=== PATIENT | female | born 1990 | race Caucasian/White ===

== ENCOUNTER 2016-11-30 09:24 | Emergency (ER) | payer BC ==
[~2016-11-30] VITALS: Ht 160 cm; Wt 63.5 kg
[2016-11-30 09:30] VITALS: BP_SYST 126
--- NOTE | 2016-11-30 09:30 | NUR ---
Patient triaged and placed in waiting room. VSS and patient appears in no acute distress at this time. Accompanied by SPOUSE, awaiting available bed, and MD notified of need for MSE.
[2016-11-30 10:15] LABS: BASOPHILS % (AUTO) 0.3 % (0.0-2.0); EOSINOPHILS # (AUTO) 0.1 K/uL (0.0-0.4); EOSINOPHILS % (AUTO) 1.2 % (0.0-4.0); HEMOGLOBIN 13.1 g/dL (12.0-16.0); LYMPHOCYTES # (AUTO) 1.6 K/uL (1.0-5.5); LYMPHOCYTES % (AUTO) 15.2 % (20.5-51.5); MEAN CORPUSCULAR HEMOGLOBIN 33 pg (27-31); MEAN CORPUSCULAR HGB CONC 34 % (32-36); MEAN CORPUSCULAR VOLUME 96 fL (79.0-98.0); MONOCYTES # (AUTO) 0.6 K/uL (0.0-1.0); MONOCYTES % (AUTO) 5.2 % (1.7-9.3); NEUTROPHILS # (AUTO) 8.3 K/uL (1.8-7.7); NEUTROPHILS % (AUTO) 78.1 % (40.0-70.0); PLATELET COUNT (AUTO) 186 K/uL (130-430); RED BLOOD CELL COUNT(AUTO) 3.95 MIL/uL (4.2-6.2); RED CELL DISTRIBUTION WIDTH 13.2 % (9.0-15.0); WHITE BLOOD COUNT (AUTO) 10.6 K/uL (4.8-10.8)
--- NOTE | 2016-11-30 10:37 | NUR ---
WHILE IN WAITING ROOM, PT HAD LABS DONE, ULTRASOUND IS DONE AND UA SENT, EXPLAINED TO PT THAT WE WILL CALL HER TO THE BACK SOON, AWAITING OPEN BED.
[2016-11-30 10:42] LABS: BILIRUBIN,URINE NEGATIVE (NEGATIVE); BLOOD, URINE NEGATIVE (NEGATIVE); CLARITY/URINE CLEAR (CLEAR); COLOR,URINE YELLOW (YELLOW); GLUCOSE,URINE NEGATIVE (NEGATIVE); KETONES,URINE NEGATIVE (NEGATIVE); LEUKOCYTE ESTERASE ,URINE NEGATIVE (NEGATIVE); NITRITE, URINE NEGATIVE (NEGATIVE); PROTEIN URINE NEGATIVE (NEGATIVE); UROBILINOGEN,URINE 0.2 (0.2-1.0)
[2016-11-30 10:45] LABS: CALCIUM 9.2 mg/dL (8.4-11.0); CREATININE 0.69 mg/dL (0.55-1.30); POTASSIUM 3.4 mmol/L (3.5-5.1)
--- NOTE | 2016-11-30 11:04 | NUR ---
DR ALVARADO AT BEDSIDE FOR EVALUATION
[2016-11-30 11:11] LABS: ALBUMIN 3.6 g/dL (3.4-4.8); TOTAL BILIRUBIN 0.5 mg/dL (0.0-1.0); TOTAL PROTEIN, SERUM 7.3 g/dL (6.4-8.3)
[2016-11-30 11:16] VITALS: BP_SYST 128
--- NOTE | 2016-11-30 11:16 | NUR ---
Patient given written and verbal discharge instructions and verbalizes understanding. ER MD discussed with patient the results and treatment provided. Given copies of tests performed in ER. Patient in stable condition. ID arm band removed Rx of NONE given. Patient educated on pain management and to follow up with PMD. Pain Scale 0/10. Opportunity for questions provided and answered.
== END 2016-11-30 11:16 | disposition home or self-care (01) ==
LOC: SED 09:24
DX: O26.891 Other specified pregnancy related conditions, first trimester (principal); R10.31 Right lower quadrant pain; Z3A.11 11 weeks gestation of pregnancy; V49.40XA Driver injured in collision with unspecified motor vehicles in traffic accident, initial encounter; Y93.89 Activity, other specified; Y99.8 Other external cause status; Y92.89 Other specified places as the place of occurrence of the external cause
CPT/HCPCS: 36415; 76801; 80053; 81003; 84702-TC; 85025; 99285

== ENCOUNTER 2017-06-21 14:15 | Inpatient (IN) | payer BC ==
[~2017-06-21] VITALS: Ht 160 cm; Wt 70.3 kg
[2017-06-21] MEDS ORDERED: OXYTOCIN/NORMAL SALINE 1,000 ML IV SCH (20:59)
[2017-06-21] MEDS ORDERED: TERBUTALINE SULFATE 1 MG/ML VIAL SUBCUT ONE (21:00)
[2017-06-21] MEDS ORDERED: DINOPROSTONE 10 MG SUPP VG ONE (21:00)
[2017-06-21 21:25] LABS: BASOPHILS % (AUTO) 0.4 % (0.0-2.0); EOSINOPHILS # (AUTO) 0.1 K/uL (0.0-0.4); EOSINOPHILS % (AUTO) 1.1 % (0.0-4.0); HEMATOCRIT 36.3 % (36-48); HEMOGLOBIN 12.2 g/dL (12.0-16.0); LYMPHOCYTES % (AUTO) 16.6 % (20.5-51.5); MEAN CORPUSCULAR HEMOGLOBIN 33 pg (27-31); MEAN CORPUSCULAR HGB CONC 34 % (32-36); MEAN CORPUSCULAR VOLUME 97 fL (79.0-98.0); MONOCYTES # (AUTO) 0.8 K/uL (0.0-1.0); MONOCYTES % (AUTO) 6.1 % (1.7-9.3); NEUTROPHILS # (AUTO) 9.4 K/uL (1.8-7.7); NEUTROPHILS % (AUTO) 75.8 % (40.0-70.0); PLATELET COUNT (AUTO) 178 K/uL (130-430); RED BLOOD CELL COUNT(AUTO) 3.76 MIL/uL (4.2-6.2); RED CELL DISTRIBUTION WIDTH 13.8 % (9.0-15.0); WHITE BLOOD COUNT (AUTO) 12.3 K/uL (4.8-10.8)
[2017-06-21 21:56] VITALS: BP_SYST 129
[2017-06-21] MEDS ORDERED: FLU VACC QS 2017-18(36MOS+)/PF 0.5 ML/SYR SYRINGE I.M. PRN (22:00)
[2017-06-22] MEDS: LR 1,000 ML IV SCH ×2 (04:22→09:27)
[2017-06-22] MEDS: NALBUPHINE HCL 10 MG/ML AMP IVP PRN ×2 (04:35→08:31)
[2017-06-22] MEDS ORDERED: OXYTOCIN 10 UNIT/ML VIAL ONE (10:52)
[2017-06-22] MEDS ORDERED: PROMETHAZINE HCL 25 MG/ML AMP ONE (11:03)
[2017-06-22] MEDS ORDERED: MEPERIDINE HCL/PF 100 MG/ML AMP ONE (11:03)
[2017-06-22] MEDS ORDERED: OXYTOCIN/NORMAL SALINE 1,000 ML IV ONE (11:17)
[2017-06-22] MEDS ORDERED: OXYTOCIN/NORMAL SALINE 1,000 ML IV SCH (11:17)
[2017-06-22] MEDS ORDERED: OXYTOCIN 10 UNIT/ML VIAL IM ONE (11:30)
[2017-06-22] MEDS ORDERED: SENNOSIDES/DOCUSATE SODIUM 1 TAB TABLET(SENOKOT-S) PO PRN (11:30)
[2017-06-22] MEDS ORDERED: MEASLES,MUMPS&RUBELLA VACC/PF 12500 UNIT/0.5 ML VIAL SUBQ PRN (11:30)
[2017-06-22] MEDS ORDERED: LANOLIN 7 GM OINT. TP PRN (11:30)
[2017-06-22] MEDS ORDERED: MEPERIDINE HCL/PF 50 MG/ML AMP IM PRN (11:30)
[2017-06-22] MEDS ORDERED: ANUSOL 1 EA SUPP.RECT (PREPARATION H) RC PRN (11:30)
[2017-06-22] MEDS ORDERED: HYDROCORTISONE 0.5%, 28.35 GM TOPICAL CREAM TP PRN (11:30)
[2017-06-22] MEDS ORDERED: OXYCODONE/ACETAMINOPHEN 5-325 TABLET PO PRN ×2 (11:30)
[2017-06-22] MEDS ORDERED: DOCUSATE SODIUM 100 MG CAPSULE PO PRN (11:30)
[2017-06-22] MEDS ORDERED: GLYCERIN/WITCH HAZEL (TUCKS PADS) TP PRN (11:30)
[2017-06-22] MEDS ORDERED: HYDROcodone/ACETAMIN 5-325 MG TAB (NORCO/ VICODIN) PO PRN (11:30)
[2017-06-22] MEDS ORDERED: DERMOPLAST SPRAY TP PRN (11:30)
[2017-06-22] MEDS ORDERED: RHO(D) IMMUNE GLOBULIN/MALTOSE 1500 UNITS/1.3 ML (WINHRO) IM PRN (11:30)
[2017-06-22] MEDS ORDERED: METHYLERGONOVINE MALEATE 0.2 MG TABLET PO PRN (11:30)
[2017-06-22] MEDS ORDERED: LIDOCAINE PF 1% 30ML(POUR BTL) INJ ONE (13:41)
[2017-06-22] MEDS ORDERED: MINERAL OIL 30 ML UDC PO ONE (13:41)
[2017-06-22] MEDS: IBUPROFEN 600 MG TABLET PO SCH (17:51)
[2017-06-22] MEDS ORDERED: TEMAZEPAM 15 MG CAPSULE PO PRN (21:00)
[2017-06-23] MEDS: IBUPROFEN 600 MG TABLET PO SCH ×3 (00:09→18:00)
[2017-06-23 08:39] LABS: BASOPHILS % (AUTO) 0.2 % (0.0-2.0); EOSINOPHILS # (AUTO) 0.2 K/uL (0.0-0.4); EOSINOPHILS % (AUTO) 1.1 % (0.0-4.0); HEMATOCRIT 31.4 % (36-48); HEMOGLOBIN 10.3 g/dL (12.0-16.0); LYMPHOCYTES # (AUTO) 2.7 K/uL (1.0-5.5); MEAN CORPUSCULAR HEMOGLOBIN 32 pg (27-31); MEAN CORPUSCULAR HGB CONC 33 % (32-36); MEAN CORPUSCULAR VOLUME 98 fL (79.0-98.0); MONOCYTES % (AUTO) 6.6 % (1.7-9.3); NEUTROPHILS # (AUTO) 11.9 K/uL (1.8-7.7); NEUTROPHILS % (AUTO) 75.1 % (40.0-70.0); PLATELET COUNT (AUTO) 138 K/uL (130-430); RED CELL DISTRIBUTION WIDTH 13.9 % (9.0-15.0); WHITE BLOOD COUNT (AUTO) 15.8 K/uL (4.8-10.8)
[2017-06-23] MEDS ORDERED: DIPH-TET-PERTUS Vaccine 0.5 ML VIAL (ADACEL) I.M. ONE (10:15)
== END 2017-06-23 18:30 | disposition home or self-care (01) | DRG 775 ==
LOC: SPU 19:59
PROVIDERS: ADMIT Specialist; ATTEND Specialist
PROC: 10E0XZZ Delivery of Products of Conception, External Approach (ICD-10-PCS; principal; 2017-06-22)
PROC: 0KQM0ZZ Repair Perineum Muscle, Open Approach (ICD-10-PCS; 2017-06-22)
DX: O70.1 Second degree perineal laceration during delivery (principal); Z37.0 Single live birth; Z3A.39 39 weeks gestation of pregnancy
CPT/HCPCS: 36415; 81002-TC; 85025; 86592; 86886; 86900; 86901; 90715; J2001; J2175; J2300; J2550; J2590; J7120; Q2037